=== PATIENT | male | born 1990 | race African-American/Black ===

== ENCOUNTER 2017-10-12 16:10 | Emergency (ER) | payer OTHER, SELFPAY | END 2017-10-12 17:25 | disposition home or self-care (01) | LOC: ERS 16:10 | DX: S16.1XXA Strain of muscle, fascia and tendon at neck level, initial encounter (principal); S39.012A Strain of muscle, fascia and tendon of lower back, initial encounter; F17.210 Nicotine dependence, cigarettes, uncomplicated; E11.9 Type 2 diabetes mellitus without complications; Z79.4 Long term (current) use of insulin; V43.52XA Car driver injured in collision with other type car in traffic accident, initial encounter | CPT/HCPCS: 99283 ==

== ENCOUNTER 2019-06-10 23:49 | Emergency (ER) | payer SELFPAY ==
[2019-06-11] MEDS ORDERED: Ondansetron PF 4 MG/2 ML Vial ONE (00:50)
[2019-06-11 01:03] LABS: #Basophils 0.1 thou/uL (0.0-0.2); #Eosinphils 0.2 thou/uL (0.0-0.7); #Lymphocytes 1.7 thou/uL (1.20-3.40); #Monocytes 0.9 thou/uL (0.11-0.59); #Neutrophils 10.1 thou/uL (1.40-6.50); %Basophils 0.5 % (0.0-1.0); %Eosinophils 1.2 % (0.0-10.0); %Lymphocytes 13.1 % (21.0-51.0); %Monocytes 6.9 % (0.0-10.0); %Neutrophils 78.4 % (42.0-75.0); Hemoglobin 15.7 g/dL (14.0-18.0); Mean Corpuscular HGB CONC 35.7 g/dL (32.0-36.0); Mean Corpuscular Hemoglobin 33.2 pg (27.0-31.0); Mean Corpuscular Volume 92.9 fL (78.0-98.0); Mean Platelet Volume 8.3 fL (7.4-10.4); Platelet Count 222 thou/uL (130-400); RBC Distribution Width 10.8 % (11.5-14.5); Red Blood Cell (RBC) Count 4.73 mill/uL (4.70-6.10); White Blood Cell (WBC) Count 12.9 thou/uL (4.8-10.8)
[2019-06-11 01:17] LABS: Base Excess-Venous 5.3 mmol/L (-2.0 to 3.0); Bicarbonate (HCO3v) 31.7 mmol/L (22.0-28.0); CO2 Tension (PvCO2) 51.9 mmHg (40.0-50.0); Calcium, Ionized 1.15 mmol/L (See Comments:); Chloride 95 mmol/L (98-107); Hemoglobin - Calc 15.1 g/dL (14.0-18.0); Potassium 3.6 mmol/L (3.5-5.1); Sodium 135 mmol/L (138-145); T. Carbon Dioxide 33.3 mmol/L (22.0-28.0); vO2 Saturation-calc 73.8 % (60.0-85.0)
[2019-06-11 01:38] LABS: ALT (SGPT) 18 U/L (8-55); AST (SGOT) 22 U/L (5-34); Albumin 4.2 g/dL (3.5-5.0); Alcohol Less than 10 mg/dL (Less than 10); Alkaline Phosphatase 108 U/L (40-110); Anion Gap 12 mmol/L (10-20); BUN (Urea Nitrogen) 10 mg/dL (8.9-20.6); Bilirubin, Total 0.4 mg/dL (0.2-1.2); Calc. Creatinine Clearance 0 mL/min (70-130); Calcium 9.5 mg/dL (7.8-10.44); Carbon Dioxide 32 mmol/L (22-29); Chloride 96 mmol/L (98-107); Estimated GFR-MDRD Greater than 90; Globulin 2.4 g/dL (2.4-3.5); Glucose 289 mg/dL (70-105); Magnesium 1.9 mg/dL (1.6-2.6); Potassium 3.7 mmol/L (3.5-5.1); Protein, Total 6.6 g/dL (6.0-8.3); Sodium 136 mmol/L (136-145)
[2019-06-11 01:46] LABS: Bacteria/HPF None Seen HPF (None Seen); Bilirubin Negative (Negative); Blood, Urine Negative (Negative); Clarity Turbid (Clear); Glucose, Urine (Dipstick) Greater than 1000 mg/dL (Negative); Leukocyte 25 Leu/uL (Negative); Nitrite Negative (Negative); Protein, Urine (Dipstick) Negative (Neg-Trace); RBC/HPF 0-3 HPF (0-3); Squamous Epithelial None Seen HPF (0-3); Urobilinogen Normal mg/dL (Less than 2); WBC/HPF 21-50 HPF (0-3)
[2019-06-11 01:47] LABS: Amphetamine Not Detected (NotDetected); Barbiturates Screen Not Detected (NotDetected); Benzodiazepine Screen Not Detected (NotDetected); Cocaine Metabolite Screen Detected (NotDetected); Medtox Control Line Valid? VALID (VALID); Medtox Reader # READER 1; Methadone Not Detected (NotDetected); Methamphetamine Not Detected (NotDetected); Opiate Screen Not Detected (NotDetected); Oxycodone Screen Not Detected (NotDetected); Phencyclidine (PCP) Not Detected (NotDetected); THC/Cannabinoid Screen Detected (NotDetected); Tricyclic Screen Not Detected (NotDetected)
== END 2019-06-11 03:47 | disposition home or self-care (01) ==
LOC: ERS 23:49
DX: E10.65 Type 1 diabetes mellitus with hyperglycemia (principal); F17.210 Nicotine dependence, cigarettes, uncomplicated
CPT/HCPCS: 36415; 80053; 80306; 80307; 81001; 82010; 82330; 82803; 83690; 83735; 84100; 85025; 96361; 96374; J2405

== ENCOUNTER 2020-04-23 13:20 | Inpatient (IN) | payer OTHER ==
[2020-04-23] MEDS ORDERED: Sodium Chloride 0.9% 1,000 ML IV SCH (13:35)
[2020-04-23 13:50] LABS: #Lymphocytes 0.4 thou/uL (1.20-3.40); #Monocytes 0.4 thou/uL (0.11-0.59); %Lymphocytes 5.4 % (21.0-51.0); %Monocytes 5.5 % (0.0-10.0); %Neutrophils 89.1 % (42.0-75.0); Hemoglobin 14.9 g/dL (14.0-18.0); Mean Corpuscular HGB CONC 33.6 g/dL (32.0-36.0); Mean Corpuscular Hemoglobin 33.4 pg (27.0-31.0); Mean Corpuscular Volume 99.4 fL (78.0-98.0); Mean Platelet Volume 8.6 fL (7.4-10.4); Platelet Count 245 thou/uL (130-400); RBC Distribution Width 11.1 % (11.5-14.5); Red Blood Cell (RBC) Count 4.45 mill/uL (4.70-6.10); White Blood Cell (WBC) Count 7.9 thou/uL (4.8-10.8)
[2020-04-23 13:55] LABS: Base Excess-Venous -0.6 mmol/L (-2.0 to 3.0); Bicarbonate (HCO3v) 23.3 mmol/L (22.0-28.0); CO2 Tension (PvCO2) 35.4 mmHg (40.0-50.0); Calcium, Ionized 1.01 mmol/L (See Comments:); Chloride 99 mmol/L (98-107); Hemoglobin - Calc 14.7 g/dL (14.0-18.0); Sodium 134 mmol/L (138-145); T. Carbon Dioxide 24.4 mmol/L (22.0-28.0); vO2 Saturation-calc 91.4 % (60.0-85.0)
[2020-04-23 14:01] LABS: Bilirubin Negative (Negative); Blood, Urine Negative (Negative); Clarity Clear (Clear); Glucose, Urine (Dipstick) Greater than 1000 mg/dL (Negative); Ketone, Urine Trace mg/dL (Negative); Leukocyte Negative Leu/uL (Negative); Nitrite Negative (Negative); Protein, Urine (Dipstick) Negative (Neg-Trace); Specific Gravity, Urine 1.036 (1.002-1.036); Urobilinogen Normal mg/dL (Less than 2); pH, Urine 5.5 (5.0-9.0)
[2020-04-23 14:10] LABS: Amphetamine Not Detected (NotDetected); Barbiturates Screen Not Detected (NotDetected); Benzodiazepine Screen Detected (NotDetected); Cocaine Metabolite Screen Detected (NotDetected); Medtox Control Line Valid? VALID (VALID); Medtox Reader # READER 1; Methadone Not Detected (NotDetected); Methamphetamine Not Detected (NotDetected); Opiate Screen Not Detected (NotDetected); Oxycodone Screen Not Detected (NotDetected); Phencyclidine (PCP) Detected (NotDetected); THC/Cannabinoid Screen Not Detected (NotDetected); Tricyclic Screen Not Detected (NotDetected)
[2020-04-23 14:10] LABS: ALT (SGPT) 17 U/L (8-55); AST (SGOT) 13 U/L (5-34); Albumin 4.2 g/dL (3.5-5.0); Alkaline Phosphatase 148 U/L (40-110); Anion Gap 18 mmol/L (10-20); BUN (Urea Nitrogen) 12 mg/dL (8.9-20.6); Bilirubin, Total 0.3 mg/dL (0.2-1.2); Calc. Creatinine Clearance 0 mL/min (70-130); Calcium 9.4 mg/dL (7.8-10.44); Carbon Dioxide 22 mmol/L (22-29); Chloride 98 mmol/L (98-107); Estimated GFR-MDRD 57; Globulin 2.5 g/dL (2.4-3.5); Phosphorus 3.8 mg/dL (2.3-4.7); Potassium 5.1 mmol/L (3.5-5.1); Protein, Total 6.7 g/dL (6.0-8.3); Sodium 133 mmol/L (136-145)
[2020-04-23 14:19] LABS: Glucose Greater than 800 mg/dL (70-105)
[2020-04-23] MEDS ORDERED: Insulin Regular 300 UNITS/3 ML VIAL IVP SCH (15:13)
[2020-04-23 15:20] LABS: Troponin I 0.032 ng/mL (< 0.028)
[2020-04-23] MEDS ORDERED: Insulin Regular 300 UNITS/3 ML VIAL ONE (15:27)
[2020-04-23] MEDS ORDERED: Aspirin Chewable 81 MG TAB ONE (15:41)
[2020-04-23] MEDS ORDERED: HUMULIN R 100 UNITS in Sodium Chloride 0.9% 100 ML IVPB SCH (15:45)
[2020-04-23] MEDS ORDERED: INSULIN REGULAR IN 0.9 % NACL 100 UNIT in Premix Bag 1 BAG IVPB SCH (16:00)
[2020-04-23] MEDS ORDERED: INSULIN REGULAR IN 0.9 % NACL 100 UNIT/100 ML BAG ONE (16:43)
[2020-04-23 17:08] LABS: Anion Gap 16 mmol/L (10-20); BUN (Urea Nitrogen) 9 mg/dL (8.9-20.6); Calc. Creatinine Clearance 0 mL/min (70-130); Calcium 8.8 mg/dL (7.8-10.44); Carbon Dioxide 21 mmol/L (22-29); Chloride 102 mmol/L (98-107); Estimated GFR-MDRD 85; Glucose 483 mg/dL (70-105); Potassium 3.9 mmol/L (3.5-5.1); Sodium 135 mmol/L (136-145)
[2020-04-23] MEDS ORDERED: Dextrose 5% in Water 1,000 ML IV PRN (18:12)
[2020-04-23] MEDS ORDERED: Acetaminophen 325 MG TAB PO PRN (18:12)
[2020-04-23] MEDS ORDERED: HumaLOG 300 UNITS/3 ML VIAL SC PRN (18:12)
[2020-04-23] MEDS ORDERED: hydrALAZINE 20 MG/ML VIAL SLOW IVP PRN (18:12)
[2020-04-23] MEDS ORDERED: Dextrose 50% Abboject 50 ML SYRINGE SLOW IVP PRN (18:12)
[2020-04-23] MEDS ORDERED: Insulin Glargine 20 UNITS in Pre-Filled Syringe 1 EACH SC SCH (18:15)
[2020-04-23] MEDS: Lactated Ringer's 1,000 ML IV SCH (18:52)
[2020-04-23] MEDS ORDERED: Amlodipine 5 MG TAB PO SCH (19:00)
--- NOTE | 2020-04-23 19:17 | HP ---
PRIMARY CARE PHYSICIAN: The patient currently does not have a primary care physician. CHIEF COMPLAINT: "I am feeling really weak and real shaky." HISTORY OF PRESENT ILLNESS: Mr. Polanco is a very pleasant 30-year-old gentleman, who has a history of type 1 diabetes mellitus. He says that he has been feeling sick for about 4 to 5 months. He says that his mother has been trying to get him to come into the hospital, but he just had been refusing to do so. However, he finally was convinced by his mom to come in. He has been feeling dizzy, weak, nauseated, and he noticed some diarrhea off and on. He says he knows that his blood sugar was high and came in for evaluation. Otherwise, he has very sketchy history. When he was evaluated in the ER, he was found to have a blood glucose over 800, but he was not acidotic and there was no evidence of any severely elevated and there was no increase in anion gap. However, he is being admitted for hyperosmolar nonketotic state. The patient also admits that he does not take his insulin daily. He says he only takes it if he thinks his blood sugar is high. He also admits to noncompliance with other medications. He did admit to smoking cigarettes and smoking marijuana as well as he admits to taking cocaine about 2 to 3 days ago. I asked him if he has been feeling depressed and if he is trying to kill himself and he says that he is not. But, he did break down toward the end of our encounter and became tearful and says that he has been depressed for quite a long time. He says he does not have a specific plan to harm himself, but does admit to feeling depressed. He has never been on any medication for it and he has not talked to his primary care doctor about this before. REVIEW OF SYSTEMS: All systems are reviewed and are negative except for that mentioned in the history of present illness. PAST MEDICAL HISTORY: Significant for diabetes mellitus type 1 for 5 years as well as hypertension. PAST SURGICAL HISTORY: Negative. ALLERGIES: NO KNOWN DRUG ALLERGIES. SOCIAL HISTORY: He admits to smoking about a pack a day for the last 15 years. He admits to alcohol use, but does not quantify it. He admits to smoking marijuana. He also admits to taking powder cocaine at least 2-3 days ago. He is single, has eight children, and he is unemployed and gets SSI or disability. FAMILY HISTORY: Significant for systemic lupus, diabetes mellitus type 2, arthritis, and hypertension. CURRENT MEDICATIONS: Include; 1. Lantus insulin 30 units in the morning and 20 in the p.m. 2. He admits to taking Humalog 5 units three times a day with meals. 3. He says he cannot remember the name of his blood pressure medicine. PHYSICAL EXAMINATION: GENERAL: He is alert and oriented. He initially had the covers drawn over his head. He is very thin and frail in appearance. VITAL SIGNS: Blood pressure was 147/116, heart rate of 124, respiratory rate of 20, and temperature is 98.2. HEENT: Pupils are equal, round, and reactive. Extraocular muscles are intact. His sclerae anicteric. Throat, there is no erythema, no exudates. He does have dry mucous membranes. NECK: No adenopathy. No bruits. LUNGS: Clear to auscultation. There is no wheezing, no rales, no rhonchi. CARDIOVASCULAR: He has a normal S1 and S2. No S3 or S4. However, his PMI is very prominent and slightly laterally displaced. ABDOMEN: Soft, nontender, and nondistended. Positive for bowel sounds. There is no rebound. No guarding. No organomegaly. EXTREMITIES: On his extremities, there is no clubbing or cyanosis. No edema. No calf tenderness. No joint effusions. NEUROLOGIC: His muscle strength is 5/5 in both his upper and lower extremities and is essentially nonfocal. SKIN AND INTEGUMENT: No skin changes. No rash. LABORATORY RESULTS: Sodium is 133, potassium is 5.1, chloride is 98, CO2 is 22, BUN of 12, creatinine is 1.74, and glucose is greater than 800. His urinalysis was essentially negative except for glucosuria. White blood cell count 7.9, hemoglobin 14.9, hematocrit is 44.2, and platelet count is 245. Urine drug screen was positive for PCP, benzodiazapine, and cocaine. ASSESSMENT AND PLAN: This is a pleasant 30-year-old gentleman, who presents to the emergency room with hyperosmolar nonketotic state, likely as a result of noncompliance. He also is exhibiting substance abuse. 1. Hyperosmolar nonketotic state. He will be placed in the IMCU, placed on an insulin drip. He does not appear to have any infectious etiology that precipitated this event. I suspect that he should correct his serum glucose very quickly and then hopefully can be then transitioned over to his home regimen as well as a sliding scale. 2. Substance abuse. He has been counseled extensively on this and the dangers of substance abuse. His mother was present during this counseling and I obtained his permission to discuss this with her as well. 3. Depression. We will start him on Zoloft. I did explain to him that it will take several weeks before he will field the affects of the antidepressant. We will also have the MR come and do an evaluation prior to discharge so that he can have followup once he leaves the hospital. He is not suicidal. 4. Hypertension. We will need to reconcile and restart his home medications. If he does not remember what he takes, then we can consider an angiotensin-converting enzyme inhibitor if his renal function improves. Otherwise, would consider something such as a beta-veronica p.r.n. medications for now. Job ID: [id number]
--- NOTE | 2020-04-23 19:42 | RAD ---
TWO VIEW CHEST: 04/23/20 HISTORY: Hypertension. Lung childress are clear. Heart and mediastinum appear normal. Vascular markings normal. Osseous structu res normal. IMPRESSION: Unremarkable chest. POS: AGW
[2020-04-23 19:51] VITALS: BMI 18.2
[2020-04-23] MEDS: Famotidine 20 MG TAB PO SCH (21:22)
[2020-04-24] MEDS: Lactated Ringer's 1,000 ML IV SCH ×3 (03:26→21:21)
[2020-04-24] MEDS: HumaLOG 300 UNITS/3 ML VIAL SC PRN ×2 (05:38→12:07)
[2020-04-24 06:39] LABS: #Basophils 0.1 thou/uL (0.0-0.2); #Eosinphils 0.3 thou/uL (0.0-0.7); #Lymphocytes 2.3 thou/uL (1.20-3.40); #Monocytes 0.9 thou/uL (0.11-0.59); #Neutrophils 5.9 thou/uL (1.40-6.50); %Basophils 0.6 % (0.0-1.0); %Eosinophils 3.6 % (0.0-10.0); %Lymphocytes 24.2 % (21.0-51.0); %Monocytes 9.6 % (0.0-10.0); Hemoglobin 11.9 g/dL (14.0-18.0); Mean Corpuscular HGB CONC 28.2 g/dL (32.0-36.0); Mean Corpuscular Hemoglobin 27.5 pg (27.0-31.0); Mean Corpuscular Volume 97.4 fL (78.0-98.0); Mean Platelet Volume 8.9 fL (7.4-10.4); Platelet Count 236 thou/uL (130-400); RBC Distribution Width 11.3 % (11.5-14.5); Red Blood Cell (RBC) Count 4.33 mill/uL (4.70-6.10); White Blood Cell (WBC) Count 9.5 thou/uL (4.8-10.8)
[2020-04-24 07:00] LABS: Calcium 8.6 mg/dL (7.8-10.44); Chloride 105 mmol/L (98-107); Sodium 133 mmol/L (136-145)
[2020-04-24 07:03] LABS: Anion Gap 17 mmol/L (10-20); BUN (Urea Nitrogen) 9 mg/dL (8.9-20.6)
[2020-04-24] MEDS: Famotidine 20 MG TAB PO SCH ×3 (11:10→21:21)
[2020-04-24] MEDS: Amlodipine 5 MG TAB PO SCH ×2 (11:10→12:08)
[2020-04-24 11:29] LABS: Glucose 153 mg/dL (70-105)
[2020-04-24 11:30] LABS: Carbon Dioxide 16 mmol/L (22-29)
[2020-04-24 11:32] LABS: Calc. Creatinine Clearance 90 mL/min (70-130); Estimated GFR-MDRD Greater than 90
--- NOTE | 2020-04-24 13:58 | PDOC.HOSPP ---
- Subjective Encounter Date: 04/24/20 Subjective: Pt feels better. BG is better controlled now. Denies any complaints. - Objective Vital Signs & Weight: Vital Signs (12 hours) Temp Pulse Resp BP Pulse Ox 04/24/20 12:08 88 04/24/20 11:10 88 04/24/20 08:03 98.2 F 88 18 139/96 H 98 04/24/20 08:00 98 04/24/20 04:00 98.6 F 87 18 142/98 H 99 Weight Weight 120 lb Most Recent Monitor Data Heart Rate from ECG 113 NIBP 145/85 NIBP BP-Mean 105 Respiration from ECG 17 Result Diagrams: 04/24/20 06:08 04/24/20 06:08 Additional Labs: Accuchecks 04/24/20 04/24/20 04/23/20 11:41 05:43 21:32 POC Glucose 226 H 175 H 395 H 04/23/20 17:43 POC Glucose 370 H Hospitalist ROS - Medication Medications: Active Medications Generic Name Dose Route Start Last Admin Trade Name Reyesq PRN Reason Stop Dose Admin Amlodipine Besylate 5 mg 04/24/20 09:00 04/24/20 12:08 Amlodipine 5 Mg Tab PO 5 mg DAILY DENISE Administration Famotidine 20 mg 04/23/20 21:00 04/24/20 12:08 Famotidine 20 Mg Tab PO 20 mg BID DENISE Administration Lactated Ringer's 1,000 mls @ 125 mls/hr 04/23/20 18:15 04/24/20 13:09 Lactated Ringer's IV 1,000 mls .Q8H DENISE Administration Insulin Human Lispro 0 units 04/23/20 18:12 04/24/20 12:07 Humalog 300 Units/3 Ml Vial SC 4 unit .MODERATE SLIDING SC PRN Administration Moderate Correctional Scale Insulin Human Lispro 0 units 04/23/20 18:12 04/23/20 21:58 Humalog 300 Units/3 Ml Vial SC 5 unit .BEDTIME SLIDING SC PRN Administration Bedtime Correctional Scale Sertraline HCl 50 mg 04/24/20 09:00 04/24/20 12:09 Sertraline Hcl 100 Mg Tab PO 50 mg DAILY DENISE Administration - Exam General Appearance: awake alert Eye: PERRL ENT: normocephalic atraumatic Neck: supple, symmetric, no thyromegaly Heart: RRR, no murmur Respiratory: CTAB, no rales, no ronchi Gastrointestinal: soft, non-tender, non-distended, normal bowel sounds Extremities: no cyanosis, no clubbing Skin: normal turgor, no lesions Neurological: cranial nerve grossly intact, no focal deficits Musculoskeletal: normal tone, normal strength Psychiatric: normal affect, normal behavior Hosp A/P (1) Cocaine abuse Code(s): F14.10 - COCAINE ABUSE, UNCOMPLICATED Status: Acute Plan: Has been counseled. (2) STEVE (acute kidney injury) Code(s): N17.9 - ACUTE KIDNEY FAILURE, UNSPECIFIED Status: Acute Plan: Resolved. (3) DKA, type 1 Status: Acute Qualifiers: Diabetes mellitus complication detail: without coma Qualified Code(s): E10.10 - Type 1 diabetes mellitus with ketoacidosis without coma Plan: Resolved. (4) Tobacco abuse Code(s): Z72.0 - TOBACCO USE Status: Acute Plan: Has been counseled. Will provide Nicotine patch if requested. (5) Type 1 diabetes mellitus Status: Acute Qualifiers: Diabetes mellitus complication status: without complication Qualified Code(s): E10.9 - Type 1 diabetes mellitus without complications Plan: Pt says he was on Lantus 30 units am and 20 units QPm. BG so far has been controlled only on with SSI. Doubt this dose. Believe it should be lower. Will therefore start pt on Lantus 20 units QHs and adjust dose as needed. - Plan PPI: SCDs CODE: FULL. Dispo: likely d/c tmr with better BG control.
[2020-04-24 15:00] LABS: #Eosinphils 0.3 thou/uL (0.0-0.7); #Lymphocytes 2.9 thou/uL (1.20-3.40); #Monocytes 0.7 thou/uL (0.11-0.59); #Neutrophils 5.2 thou/uL (1.40-6.50); %Basophils 0.5 % (0.0-1.0); %Eosinophils 3.4 % (0.0-10.0); %Lymphocytes 31.4 % (21.0-51.0); %Monocytes 7.8 % (0.0-10.0); %Neutrophils 56.9 % (42.0-75.0); Hemoglobin 13.6 g/dL (14.0-18.0); Mean Corpuscular HGB CONC 35.1 g/dL (32.0-36.0); Mean Corpuscular Hemoglobin 33.5 pg (27.0-31.0); Mean Corpuscular Volume 95.5 fL (78.0-98.0); Mean Platelet Volume 8.1 fL (7.4-10.4); Platelet Count 222 thou/uL (130-400); RBC Distribution Width 11.1 % (11.5-14.5); Red Blood Cell (RBC) Count 4.08 mill/uL (4.70-6.10); White Blood Cell (WBC) Count 9.2 thou/uL (4.8-10.8)
[2020-04-24] MEDS ORDERED: Insulin Glargine 20 UNITS in Pre-Filled Syringe 1 EACH SC SCH (21:00)
[2020-04-25] MEDS: Lactated Ringer's 1,000 ML IV SCH (03:28)
[2020-04-25 05:51] LABS: #Basophils 0.1 thou/uL (0.0-0.2); #Eosinphils 0.4 thou/uL (0.0-0.7); #Lymphocytes 3.3 thou/uL (1.20-3.40); #Monocytes 0.6 thou/uL (0.11-0.59); #Neutrophils 4.3 thou/uL (1.40-6.50); %Eosinophils 4.2 % (0.0-10.0); %Monocytes 7.2 % (0.0-10.0); %Neutrophils 49.6 % (42.0-75.0); Hemoglobin 15.5 g/dL (14.0-18.0); Mean Corpuscular HGB CONC 35.1 g/dL (32.0-36.0); Mean Corpuscular Hemoglobin 33.7 pg (27.0-31.0); Mean Platelet Volume 8.7 fL (7.4-10.4); Platelet Count 234 thou/uL (130-400); RBC Distribution Width 11.1 % (11.5-14.5); White Blood Cell (WBC) Count 8.8 thou/uL (4.8-10.8)
[2020-04-25 06:17] LABS: Anion Gap 14 mmol/L (10-20); BUN (Urea Nitrogen) 7 mg/dL (8.9-20.6); Calc. Creatinine Clearance 110 mL/min (70-130); Calcium 9.1 mg/dL (7.8-10.44); Carbon Dioxide 27 mmol/L (22-29); Chloride 102 mmol/L (98-107); Estimated GFR-MDRD Greater than 90; Glucose 99 mg/dL (70-105); Potassium 3.1 mmol/L (3.5-5.1); Sodium 140 mmol/L (136-145)
[2020-04-25] MEDS: Amlodipine 5 MG TAB PO SCH (09:21)
[2020-04-25] MEDS: Famotidine 20 MG TAB PO SCH (09:22)
[2020-04-25 11:15] VITALS: TEMP 98.1
[2020-04-25] MEDS: HumaLOG 300 UNITS/3 ML VIAL SC PRN (11:41)
[2020-04-25 11:46] VITALS: BP 146/96
--- NOTE | 2020-04-25 12:35 | DIS ---
DATE OF ADMISSION: 04/23/2020 DATE OF DISCHARGE: 04/25/2020 PRIMARY CARE PROVIDER: Listed as Dr. Wu. DIAGNOSES: 1. Type 1 diabetes mellitus. 2. Hyperosmolar syndrome. 3. Cocaine abuse. 4. Acute renal failure. DISCHARGE MEDICINES: Home medicines, 1. Detemir 20 units at bedtime, 30 units a.m. 2. Humalog 5 units with meals. ALLERGIES: NO KNOWN DRUG ALLERGIES. CODE STATUS: Full. PENDING AT TIME OF DISCHARGE: Nothing. HOSPITAL COURSE: The patient admitted to the Hospitalist Service through the emergency room feeling weak and shaky, history of diabetes mellitus type 1. He was found to have a hyperosmolar nonketotic state, placed in IMCU on IV drip. He had PCP, cocaine, etc., in his urine, admits to marijuana. His sugars rapidly came down. He was moved to [place] [id number]. His sugars are now well controlled. As I said before, he admits to noncompliance. He is begging, insisting on going home. He is being discharged. He has been told to take his medicines as directed, to avoid drugs, to follow up with his PCP in 1 week. No consultants. Job ID: [id number]
--- NOTE | 2020-04-27 07:29 | PQF ---
CLINICAL DOCUMENTATION CLARIFICATION FORM: Dear : Robinson Toney Date / Time: 04/27/20 7389 Please exercise your independent, professional judgment in responding to the clarification form. Clinical indicators are provided on the bottom of this form for your review Please check appropriate box(es): [ ] Protein Calorie Malnutrition: [ ] Mild [ ] Moderate [ ] Severe [ ] Other Malnutrition (please specify) [ ] Underweight without malnutrition [ ] Cachexia [ x ] Other diagnosis weight loss due to polysubstance abuse [ ] Unable to determine In addition, please specify: Present on Admission (POA): [ x] Yes [ ] No [ ] Unable to determine Physician Signature: Date/Time: For continuity of documentation, please document condition throughout progress notes and discharge summary. Thank You. To be completed by CDI/Coding staff for physician review: Present Clinical Indicators - Signs / Symptoms / Labs Results and Location in Medical Record [X] BP 155/166, pulse 126, Resp 17 Vital signs 04/23 [X] BMI of 18.2 Nutritional Assessment Dietitian [facility] 04/25 [X] Weight Loss Nutritional Assessment Dietitian [facility] 04/25 [X] Loss of Muscle Mass Nutritional Assessment Dietitian [facility] 04/25 [X] Mild temporal muscle wasting Nutritional Assessment Dietitian [facility] 04/25 [X] Protein 6.7, Albumin 4.2, Globulin 2.5, Ratio 1.7 Laboratory 04/23 Present Risk Factors Results and Location in Medical Record [X] DM type1 Nutritional Assessment Dietitian [facility] 04/25 [X] Hyperosmalarity syndrome Nutritional Assessment Dietitian [facility] 04/25 [X] Cocaine and Marijuana abuse Nutritional Assessment Dietitian [facility] 04/25 [X] Smoker Nutritional Assessment Dietitian [facility] 04/25 [X] STEVE Nutritional Assessment Dietitian [facility] 04/25 Present Treatments Results and Location in Medical Record [X] Dietary consult Nutritional Assessment Dietitian [facility] 04/25 [X] Nutritional supplements Nutritional Assessment Dietitian [facility] 04/25 [X] Oral Intake monitoring Nutritional Assessment Dietitian [facility] 04/25 [X] Weight monitoring Nutritional Assessment [facility]itian [facility] 04/25 [X] Appetite stimulant - medication Nutritional Assessment Dietitian [facility] 04/25 CDS/[employer] Signature: Sandi Whalen Phone #: [phone] Date/Time: 04/27/2020 0737 Moderate Malnutrition (in acute illness) ? Energy Intake: <75% of estimated energy requirement for > 7 days ? Weight Loss: 1-2%/1 week; 5%/ 1 month; 7.5%/3 months ? Other: mild body fat loss; mild muscle mass loss; mild fluid accumulation; Severe Malnutrition (in acute illness) ? Energy Intake: ? 50% of estimated energy requirement for ? 5 days ? Weight Loss: >2%/1 week; >5%/1 month; >7.5%/3 months ? Other: moderate body fat loss; moderate muscle mass loss; moderate- severe fluid accumulation; measurably reduced technical specialist cytogenetics strength Moderate Malnutrition (in chronic illness) ? Energy Intake: <75% of estimated energy requirement for ?1 month ? Weight Loss: 5%/1 month; 7.5%/3 months; 10%/6 months; 20%/1 year ? Other: mild body fat loss; mild muscle mass loss; mild fluid accumulation Severe Malnutrition (in chronic illness) ? Energy Intake: ?75% of estimated energy requirement for ?1 month ? Weight Loss: >5%/1 month; >7.5%/3 months; >10%/6 months; >20%/1 year ? Other: severe body fat loss; severe muscle mass loss; severe fluid accumulation; measurably reduced technical specialist cytogenetics strength This is a permanent part of the Medical Record [facility]
== END 2020-04-25 12:48 | disposition home or self-care (01) | DRG 638 ==
LOC: ERS 13:20 → IMCU/EMU 15:38 → T4-A 19:47
PROVIDERS: ADMIT Internal Medicine; ATTEND Internal Medicine
DX: E13.00 Other specified diabetes mellitus with hyperosmolarity without nonketotic hyperglycemic-hyperosmolar coma (NKHHC) (principal); N17.9 Acute kidney failure, unspecified; Z68.1 Body mass index [BMI] 19.9 or less, adult; F12.10 Cannabis abuse, uncomplicated; F14.10 Cocaine abuse, uncomplicated; F17.210 Nicotine dependence, cigarettes, uncomplicated; F32.9 Major depressive disorder, single episode, unspecified; I10 Essential (primary) hypertension; R63.4 Abnormal weight loss; Z71.51 Drug abuse counseling and surveillance of drug abuser; Z91.19 Patient's noncompliance with other medical treatment and regimen; Z79.4 Long term (current) use of insulin
CPT/HCPCS: 36415; 36416; 71046; 80048; 80053; 80306; 81003; 82010; 82330; 82803; 83735; 84100; 84484; 85025; 93005; 94760; 96361; 96365; 96376; J1815; J3490

== ENCOUNTER 2020-10-11 01:16 | Emergency (ER) | payer OTHER ==
[2020-10-11 01:55] LABS: #Basophils 0.1 thou/uL (0.0-0.2); #Eosinphils 0.1 thou/uL (0.0-0.7); #Lymphocytes 1.9 thou/uL (1.20-3.40); #Monocytes 0.5 thou/uL (0.11-0.59); #Neutrophils 4.6 thou/uL (1.40-6.50); %Basophils 0.7 % (0.0-1.0); %Eosinophils 1.8 % (0.0-10.0); %Lymphocytes 26.5 % (21.0-51.0); %Monocytes 7.2 % (0.0-10.0); %Neutrophils 63.8 % (42.0-75.0); Hemoglobin 16.1 g/dL (14.0-18.0); Mean Corpuscular HGB CONC 35.1 g/dL (32.0-36.0); Mean Corpuscular Volume 96.9 fL (78.0-98.0); Platelet Count 206 thou/uL (130-400); RBC Distribution Width 11.3 % (11.5-14.5); Red Blood Cell (RBC) Count 4.74 mill/uL (4.70-6.10); White Blood Cell (WBC) Count 7.3 thou/uL (4.8-10.8)
[2020-10-11 02:14] LABS: Phosphorus 4.4 mg/dL (2.3-4.7)
[2020-10-11 02:16] LABS: ALT (SGPT) 16 U/L (8-55); AST (SGOT) 22 U/L (5-34); Albumin 4.1 g/dL (3.5-5.0); Alkaline Phosphatase 150 U/L (40-110); Anion Gap 18 mmol/L (10-20); BUN (Urea Nitrogen) 12 mg/dL (8.9-20.6); Bilirubin, Total 0.4 mg/dL (0.2-1.2); Calc. Creatinine Clearance 0 mL/min (70-130); Calcium 9.3 mg/dL (7.8-10.44); Carbon Dioxide 24 mmol/L (22-29); Chloride 94 mmol/L (98-107); Potassium 4.8 mmol/L (3.5-5.1); Protein, Total 7.1 g/dL (6.0-8.3); Sodium 131 mmol/L (136-145)
[2020-10-11 02:20] LABS: Glucose 719 mg/dL (70-105)
[2020-10-11] MEDS ORDERED: Insulin Regular 300 UNITS/3 ML VIAL ONE (02:27)
[2020-10-11 02:32] LABS: Actual Bicarbonate (HCO3v) 29 mEq/L (22-28); Analyzer IN Cardio ER; Base Excess 4.5 mEq/L (-2.0 to +3.0); Calcium, Ionized (venous) 1.15 mmol/L (1.16-1.32); Chloride (VBG) 96 mmol/L (98-106); Hemoglobin (Hb) 16.2 g/dL (13.2-17.3); Potassium (VBG) 5.77 mmol/L (3.70-5.30); Sodium 132.3 mmol/L (133-146); pH (venous) 7.45 (7.32-7.43)
[2020-10-11 03:16] LABS: Bilirubin Negative (Negative); Blood, Urine Negative (Negative); Clarity Clear (Clear); Glucose, Urine (Dipstick) Greater than 1000 mg/dL (Negative); Ketone, Urine Negative (Negative); Leukocyte Negative Leu/uL (Negative); Nitrite Negative (Negative); Protein, Urine (Dipstick) Negative (Neg-Trace); Specific Gravity, Urine 1.036 (1.002-1.036); Urobilinogen Normal mg/dL (Less than 2); pH, Urine 7.5 (5.0-9.0)
== END 2020-10-11 05:10 ==
LOC: ERS 01:16
DX: E11.65 Type 2 diabetes mellitus with hyperglycemia (principal); I10 Essential (primary) hypertension; F17.210 Nicotine dependence, cigarettes, uncomplicated; Z79.4 Long term (current) use of insulin
CPT/HCPCS: 36415; 36416; 71045; 80053; 81003; 82010; 82805; 83735; 84100; 85025; 96374; J1815

== ENCOUNTER 2021-01-20 16:21 | Emergency (ER) | payer OTHER ==
[2021-01-20] MEDS ORDERED: Insulin Regular 300 UNITS/3 ML VIAL ONE ×2 (16:54→16:57)
== END 2021-01-20 17:18 | disposition left against medical advice (07) ==
LOC: ERS 16:21
DX: E10.65 Type 1 diabetes mellitus with hyperglycemia (principal); R19.7 Diarrhea, unspecified; I10 Essential (primary) hypertension; F17.210 Nicotine dependence, cigarettes, uncomplicated
CPT/HCPCS: 36416; 71045; 99285; J1815

== ENCOUNTER 2022-10-17 09:34 | Emergency (ER) | payer OTHER | END 2022-10-17 10:33 | disposition home or self-care (01) | LOC: ERS 09:34 | DX: E11.649 Type 2 diabetes mellitus with hypoglycemia without coma (principal); I10 Essential (primary) hypertension; F17.210 Nicotine dependence, cigarettes, uncomplicated; Z79.4 Long term (current) use of insulin | CPT/HCPCS: 36416; 99285 ==